=== PATIENT | male | born 1970 | race Caucasian/White ===

== ENCOUNTER 2017-02-23 23:42 | Emergency (ER) | payer SELFPAY ==
[~2017-02-23] VITALS: Ht 175.3 cm; Wt 60.0 kg
[2017-02-23 23:45] VITALS: BP 116/71; PULSE 111; RESP 16; TEMP 98.6; O2SAT 99
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
[2017-02-24 05:50] LABS: AUTOMATED NEUTROPHIL # 5.4 TH/MM3 (1.8-7.7); BASOPHIL # 0.1 TH/MM3 (0-0.2); BASOPHIL % 0.8 % (0.0-2.0); EOSINOPHIL # 0.2 TH/MM3 (0-0.4); EOSINOPHIL % 2.4 % (0.0-4.0); HEMATOCRIT 33.8 % (39.0-51.0); HEMO FLAGS DIFF FINAL; LYMPHOCYTE # 2.5 TH/MM3 (1.0-4.8); MEAN CELL VOLUME 83.5 FL (80.0-100.0); MEAN CORPUSCULAR HGB CONC 33.5 % (32.0-36.0); MONO % 9.6 % (0.0-8.0); NEUT % 59.2 % (16.0-70.0); PLATELET COUNT 387 TH/MM3 (150-450); RED BLOOD COUNT 4.05 MIL/MM3 (4.50-5.90); RED CELL DISTRIBUTION WIDTH 14.3 % (11.6-17.2); WHITE BLOOD COUNT 9.1 TH/MM3 (4.0-11.0)
[2017-02-24 06:31] LABS: BICARBONATE 27.1 MEQ/L (21.0-32.0)
[2017-02-24 06:32] LABS: POTASSIUM 3.8 MEQ/L (3.5-5.1)
[2017-02-24] MEDS ORDERED: IOHEXOL 350 MG/ML 10 ML VIAL (for RAD DIAG) IVCONTRAST ONE (06:49)
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
[2017-02-24 08:05] VITALS: BP 123/72; PULSE 92; RESP 16; O2SAT 100
[2017-02-24] MEDS ORDERED: SODIUM CHLOR 0.9% 1000 ML INJ 1,000 ML IV SCH (08:30)
[2017-02-24] MEDS ORDERED: MORPHINE SULFATE 2 MG/ML INJ IV PUSH ONE (08:30)
[2017-02-24] MEDS ORDERED: ONDANSETRON HCL 4 MG/2 ML VIAL IV PUSH ONE (08:30)
[2017-02-24 09:47] VITALS: BP 132/72
== END 2017-02-24 09:51 | disposition short-term general hospital (02) ==
LOC: NEPC 23:42
DX: M54.2 Cervicalgia (principal); V19.00XA Pedal cycle driver injured in collision with unspecified motor vehicles in nontraffic accident, initial encounter; S12.9XXD Fracture of neck, unspecified, subsequent encounter; V19 Pedal cycle rider injured in other and unspecified transport accidents
CPT/HCPCS: 70491; 80048; 85025; 96374; 96375; 99291; 99292; J2270; J2405; J7030; Q9967